=== PATIENT | male | born 1985 | race Caucasian/White ===

== ENCOUNTER 2016-12-07 19:31 | Emergency (ER) | payer OTHER ==
[~2016-12-07] VITALS: Ht 182.9 cm; Wt 111.4 kg
[2016-12-07 20:11] VITALS: BP 143/91; PULSE 85; RESP 20; O2SAT 97
[2016-12-07 20:59] LABS: BASOPHILS % (AUTO) 0.4 % (0-3); EOSINOPHILS % (AUTO) 2.2 % (0-5); MONOCYTES % (AUTO) 12.5 % (4-12); Mean Corpuscular Hemoglobin 33.3 pg (27.0-35.0); Mean Corpuscular Volume 95.7 fL (81-100); Platelet Count 285 bil/L (150-400)
[2016-12-07 21:21] LABS: Magnesium 2.1 mg/dL (1.6-2.6)
--- NOTE | 2016-12-07 21:29 | ED.REPORT ---
HPI-General Illness Date of Service Dec 07, 2016 ED Provider: Pa Gutierrez MD This is a 31-year-old male with no known past medical history who presents to the emergency department for chest pain. Patient reports sharp sternal chest pain been gone on for one month that is constant. In the last 3 days he noted the pain and then radiating to the left, with severity 7 out of 10. Pain is worse with lying down, standing, pushing on an object or with deep breath. He has tried Tylenol, ibuprofen and ice for the pain without any relief. He denies any trauma. He notes associated dizziness. Denies fevers, chills, nausea, vomiting, coughing, feeling short of breath, belly pains, diarrhea. Mother notes that brother in his 30s has atrial fibrillation and SVT, so they are concerned about him having heart issues as well. Patient has not felt any palpitations himself. Nursing Notes Stated Complaint: CHEST PAIN, SHORTNESS OF BREATH Chief Complaint: Male Abdominal Pain Nursing Notes Reviewed: Yes Allergies: Coded Allergies: sulfamethoxazole (Verified Allergy, Intermediate, 12/07/16) trimethoprim (Verified Allergy, Intermediate, 12/07/16) Scheduled Famotidine (Famotidine) 20 Mg Tablet 20 MG PO BID Scheduled PRN Naproxen (Naproxen) 500 Mg Tab 500 MG PO BID PRN PRN For Pain General Time Seen by MD: 21:05 Chief Complaint Chest pain Hx Obtained From: Patient Past Medical History Past Medical History Denies Past Surgical History Denies Smoking History Never Smoker Social History Chews tobacco for last 7-8 years Alcohol Use: Denies alcohol use Drug Use: Denies drug use Review of Systems Full Review of Systems Constitutional: Denies: Chills, Fever Respiratory: Denies: Non-productive cough, Shortness of breath Cardiovascular: Reports: Chest pain GI: Denies: Abdominal pain, Diarrhea, Nausea, Vomiting Musculoskeletal: Denies: Extremity swelling Neurologic: Reports: Dizziness Complete sys rev & neg: except as marked. Physical Exam Vital Signs Vital Signs Date Time Temp Pulse Resp B/P Pulse Ox O2 Delivery O2 Flow Rate FiO2 12/07/16 22:54 66 18 126/82 96 Room Air 12/07/16 20:11 37.1 85 20 143/91 97 Room Air Initial VS: Reviewed General/Constitutional: Well-developed, Well-nourished Head / Eyes: Atraumatic, Normocephalic ENT: Conjunctiva normal, No scleral icterus Respiratory: Breath sounds normal, Clear to auscultation, No respiratory distress Cardiovascular: Regular rate & rhythm, Heart sounds normal, Intact distal pulses Abdomen / GI: Soft, Non-tender, No guarding, No distention Extremities: Vascular intact, Neuro intact, No swelling Skin: Warm, Dry Neurologic: Alert, Oriented, Nonfocal Psychiatric: Mood/affect normal, Behavior normal, Normal thought content Chest Wall / Ribs: Positive: Rib tender nondeformed L, Sternum tender (lower) Interpretation & Diagnostics Lab Results Interpretation Result Diagram: 12/07/16203412/07/162034 Test 12/07/16 20:35 12/07/16 21:33 12/07/16 22:07 White Blood Count 7.8th/mm3 (3.8-10.1) Red Blood Count 4.45mil/mm3 (4.40-5.80) Hemoglobin 14.8g/dL (13.8-17.2) Hematocrit 42.6% (41.0-50.0) Mean Corpuscular Volume 95.7fL (81-100) Mean Corpuscular Hemoglobin 33.3pg (27.0-35.0) Mean Corpuscular Hemoglobin Concent 34.7% (32.0-37.0) Red Cell Distribution Width 12.0% (12.3-15.4) Platelet Count 285bil/L (150-400) Neutrophils (%) (Auto) 61.0% (40-74) Lymphocytes (%) (Auto) 23.3% (14-46) Monocytes (%) (Auto) 12.5% (4-12) Eosinophils (%) (Auto) 2.2% (0-5) Basophils (%) (Auto) 0.4% (0-3) Erythrocyte Sedimentation Rate 6mm/hr (0-15) Sodium Level 139mEq/L (134-144) Potassium Level 3.7mEq/L (3.5-5.2) Chloride Level 101mEq/L (97-108) Carbon Dioxide Level 24mmol/L (18-29) Blood Urea Nitrogen 14mg/dL (6-20) Creatinine 0.83mg/dL (0.76-1.27) Estimat Glomerular Filtration Rate 116mL/min (>59) Glucose Level 86mg/dL (60-99) Calcium Level 9.3mg/dL (8.5-10.1) Magnesium Level 2.1mg/dL (1.6-2.6) Total Bilirubin 0.2mg/dL (0.0-1.2) Aspartate Amino Transf (AST/SGOT) 20U/L (0-50) Alanine Aminotransferase (ALT/SGPT) 31U/L (0-44) Alkaline Phosphatase 73U/L (25-150) Total Protein 7.6g/dL (6.4-8.4) Albumin 4.5g/dL (3.4-5.0) Lipase 21U/L (13-60) Thyroid Stimulating Hormone (TSH) 4.730uIU/mL (0.450-4.500) Free Thyroxine 1.38ng/dL (0.82-1.77) Hold Narvaez Top Tube Received (Received) Hold Urine Received (Received) Re-Eval/Medical Decision Med Decision/Clinical Course 31-year-old with clearcut chest wall pain. Presents out of some concern because his brother has atrial fibrillation. His cardiogram has borderline left axis deviation and some suggestion of left atrial enlargement. No evidence of ischemia. Suggest follow-up with PCP for echo and stress test. Discharged in stable condition with Naprosyn twice a day, proton pump inhibitor, and follow-up with PCP. This is a 31-year-old male with no known past medical history presents to the emergency department for chest pain ongoing for the last month which is worse with and supine posture and pushing objects. On exam there is significant tenderness at the lower sternum and left lower ribs which patient says that the exact pain he has been feeling. He denies any trauma. CBC is unremarkable, CMP , ESR, lipase unremarkable. TSH very slightly elevated however T4 is normal. EKG shows possible left axis deviation however no significant findings. Patient should follow up in the outpatient setting in a week and consider getting a stress test and echocardiogram given family history of atrial fibrillation at a young age. There is no concern for UT at this time as pain seems to be related to chest wall. Counseled Regarding: Diagnosis, Lab results, Need for follow-up, When/why to return to ED Discharge & Departure Primary Impression: Chest pain Chest pain type: unspecified Qualified Code: R07.9 - Chest pain, unspecified Disposition: Home Discharge Condition All VS Reviewed: Yes Condition: Stable Patient Instructions: Costochondritis (ED) Additional Instructions: Please stop chewing tobacco for your own good. This will be beneficial for your health and also save you money. There does not seem to be emergent cause for your chest pain at this time. It seems to be more to do with your chest wall. Take naproxen twice daily for the next 10-14 days with your heartburn medication as this will help reduce stomach upset. I recommend he follow up at the outpatient doctor. Given your family history of atrial fibrillation, it might be worthwhile to get a stress test and echocardiogram. If he started to develop palpitations associated with her chest pain and difficulty with breathing, return to the emergency department. Referrals: Radames Shepard MD (PCP) Attending Statement As attending of record for this patient, I conducted an independent history and physical examination, and agree with the documentation per the resident note as above, and as amended. Husam Johnson DO Dec 07, 2016 21:29 Pa Gutierrez MD Dec 08, 2016 06:54
[2016-12-07] MEDS ORDERED: NPR500T PO (22:00)
--- NOTE | 2016-12-07 22:08 | DRSVH ---
PROCEDURE: X-RAY CHEST, TWO VIEWS ([id number]) INDICATIONS: 31 year-old male with chest pain and dyspnea. TECHNIQUE: 2 views of the chest were acquired. COMPARISON: [facility], , CHEST 1VW (PORTABLE), 09/14/2013, 11:19. [facility], , CHEST 2VW, 07/03/2010, 22:04. FINDINGS: Surgical changes and devices: None. Lungs and pleura: No pleural effusions or pneumothorax. Lungs are clear. Mediastinum: Mediastinal contours are normal. Heart size is normal. Bones and chest wall: No suspicious bony abnormalities. Soft tissues appear unremarkable. IMPRESSION: No acute cardiopulmonary disease. Dictated by: Mao Segovia M.D. on 12/07/2016 at 22:05 Approved by: Mao Segovia M.D. on 12/07/2016 at 22:06
[2016-12-07] MEDS ORDERED: FAMO20TA4 PO (22:22)
[2016-12-07 22:54] VITALS: BP 126/82; PULSE 66; RESP 18; O2SAT 96
== END 2016-12-07 22:55 | disposition home or self-care (01) ==
LOC: SED 19:31
DX: R07.2 Precordial pain (principal); Z88.1 Allergy status to other antibiotic agents; Z88.2 Allergy status to sulfonamides